=== PATIENT | female | born 1955 | race Caucasian/White ===

== ENCOUNTER 2023-02-15 05:54 | Day surgery (SDC) | payer MEDICARE, OTHER ==
[2023-02-15] MEDS ORDERED: Dextrose 5%-0.45% NaCl 1,000 ML IV SCH (06:00)
[2023-02-15] MEDS ORDERED: Midazolam 1 MG/ML 2 ML SDV ONE (06:06)
[2023-02-15] MEDS ORDERED: fentaNYL 100 MCG/2 ML SDV ONE (06:07)
[2023-02-15] MEDS ORDERED: fentaNYL 100 MCG/2 ML SDV IV ONE ×2 (07:11→07:12)
[2023-02-15] MEDS ORDERED: Midazolam 1 MG/ML 2 ML SDV IV ONE ×6 (07:12→07:25)
== END 2023-02-15 09:00 | disposition home or self-care (01) ==
LOC: DL.ENDO 05:54
PROVIDERS: ATTEND Internal Medicine Gastroenterology
DX: Z12.11 Encounter for screening for malignant neoplasm of colon (principal); F98.8 Other specified behavioral and emotional disorders with onset usually occurring in childhood and adolescence; M19.90 Unspecified osteoarthritis, unspecified site; M54.9 Dorsalgia, unspecified; F41.1 Generalized anxiety disorder; F32.A Depression, unspecified; I10 Essential (primary) hypertension; E66.09 Other obesity due to excess calories; Z88.5 Allergy status to narcotic agent; Z88.8 Allergy status to other drugs, medicaments and biological substances; Z87.11 Personal history of peptic ulcer disease; Z68.28 Body mass index [BMI] 28.0-28.9, adult; Z98.890 Other specified postprocedural states
CPT/HCPCS: J2250; J3010; J7042